=== PATIENT | female | born 1995 | race Hispanic/Latino ===

== ENCOUNTER 2025-06-21 09:16 | Emergency (ER) | payer SELFPAY ==
[2025-06-21 11:37] LABS: Glucose, Urine (Dipstick) Normal (Negative); Leukocyte 25 (Negative); Protein, Urine (Dipstick) 30 mg/dl (Neg-Trace); Specific Gravity, Urine 1.030 (1.005-1.030)
[2025-06-21 11:42] LABS: #Basophils 0.05 10x3/uL (0.0-0.2); #Eosinophils 0.12 10x3/uL (0.0-0.5); #Monocytes 0.48 10x3/uL (0.0-1.1); #Neutrophils 6.81 10x3/uL (1.5-8.4); %Basophils 0.5 % (0.0-2.0); %Eosinophils 1.3 % (0.0-6.0); %Lymphocytes 17.8 % (18.0-47.0); %Monocytes 5.3 % (0.0-10.0); %Neutrophils 74.8 % (40.0-75.0); Hematocrit 35.5 % (34.9-44.5); Hemoglobin 11.9 g/dL (12.0-15.5); Mean Corpuscular Hemoglobin 29.8 pg (27.0-33.0); Mean Corpuscular Volume 89.0 fL (81.6-98.3); Platelet Count 298 10x3/uL (150-450); Red Blood Cell (RBC) Count 3.99 10x6/uL (3.90-5.03); White Blood Cell (WBC) Count 9.11 10x3/uL (3.5-10.5)
[2025-06-21 11:55] LABS: ALT (SGPT) 11 U/L (Less than 34); AST (SGOT) 22 U/L (11-34); Albumin 3.7 g/dL (3.1-4.5); Alkaline Phosphatase 49 U/L (40-110); Anion Gap 11 mmol/L (10-20); BUN (Urea Nitrogen) 6 mg/dL (7.0-18.7); Bilirubin, Total 0.3 mg/dL (0.3-1.2); Calc. Creatinine Clearance 0 mL/min (70-130); Calcium 8.5 mg/dL (7.8-10.44); Carbon Dioxide 22 mmol/L (22-29); Chloride 107 mmol/L (98-107); Globulin 3.7 g/dL (2.4-3.5); Glucose 83 mg/dL (70-105); Potassium 3.3 mmol/L (3.5-5.1); Sodium 137 mmol/L (136-145)
[2025-06-21 12:00] LABS: Bacteria/HPF 1+ HPF (None Seen); CAUTI Indications for Culture Pregnancy; WBC/HPF 0-3 HPF (0-3)
[2025-06-21 12:01] LABS: Mucous/LPF 1+ LPF (<2+)
[2025-06-21 12:03] LABS: Urine Culture Reflex Yes Yes
== END 2025-06-21 13:15 | disposition home or self-care (01) ==
LOC: CSHERS 09:16
DX: O20.0 Threatened abortion (principal); Z3A.10 10 weeks gestation of pregnancy
CPT/HCPCS: 36415; 76856; 80053; 81001; 84702; 85025; 86900; 86901; 87086; 99284

== ENCOUNTER 2025-10-28 13:26 | Day surgery (SDC) | payer OTHER ==
[2025-10-28 13:50] VITALS: BMI 28.2
[2025-10-28 14:55] LABS: Glucose, Urine (Dipstick) 100 mg/dL (Negative); Leukocyte 500 (Negative); Protein, Urine (Dipstick) 15 mg/dl (Neg-Trace); Specific Gravity, Urine 1.015 (1.005-1.030)
[2025-10-28 15:34] LABS: RBC/HPF 0-3 HPF (0-3)
[2025-10-28 15:35] LABS: Bacteria/HPF 2+ HPF (None Seen)
== END 2025-10-28 16:45 | disposition home or self-care (01) ==
LOC: CSHLD/OP 13:26
PROVIDERS: ATTEND Family Medicine
DX: O23.593 Infection of other part of genital tract in pregnancy, third trimester (principal); B96.89 Other specified bacterial agents as the cause of diseases classified elsewhere; O99.891 Other specified diseases and conditions complicating pregnancy; N89.8 Other specified noninflammatory disorders of vagina; R30.0 Dysuria; Z3A.28 28 weeks gestation of pregnancy
CPT/HCPCS: 81001; 87086; 87480; 87510; 87660